=== PATIENT | male | born 1965 | race Caucasian/White ===

== ENCOUNTER 2023-04-20 23:47 | Emergency (ER) | payer MEDICAID, SELFPAY ==
[2023-04-20 23:49] VITALS: BP 120/90; PULSE 88; RESP 18; TEMP 36.6; O2SAT 92; BMI 26.6
--- NOTE | 2023-04-21 00:03 | ED.FALL1 ---
HPI - Fall General Chief Complaint: Fall Stated Complaint: FALL/RT SIDE PAIN Time Seen by Provider: 04/20/23 23:57 Source: patient Mode of arrival: walk-in Limitations: no limitations History of Present Illness HPI Narrative: This 57-year-old male is brought to the emergency department by his niece. The patient states that he was walking outside last week and wearing sneakers at did not have any tread and he slipped and fell backwards onto his right low back/hip area. He denies striking his head. He has no neck or back pain. He has a large bruise at the iliac crest on the right that wraps around anteriorly and posteriorly. He denies any blood in his urine. He has no chest pain or shortness of breath. He does admit to moderate alcohol and tobacco use. He was noted to have a low pulse ox upon arrival at 92 percent on room air but states he does not feel short of breath. He has been using Tylenol Motrin and essential oils without clinical improvement. His niece saw the bruised area today and brought him to the hospital. Related Data Home Medications Medication Instructions Recorded Confirmed No Known Home Medications 04/20/23 04/20/23 Allergies Allergy/AdvReac Type Severity Reaction Status Date / Time No Known Drug Allergies Allergy Verified 04/20/23 23:57 Review of Systems ROS Status of ROS 10 or more systems reviewed and unremarkable except as noted in history and below [facility] Social History Smoking status: Current every day smoker Exam Narrative Exam Narrative: Nurses note and vital signs reviewed and patient is mildly hypoxic with pulse ox of 92 percent on room air, pulse ox increased to 96 with movement and deep breathing General: The patient appears well and in no apparent distress but is uncomfortable with movement and when removing shirt due to right flank pain Skin: approx 10x 6 cm area of ecchymosis at right iliac crest at waist line of pants with a small scab in the center, it is firm and tender, Head: Normocephalic, atraumatic Neck: no midline bony vertebral tenderness or step-off Eye: Normal conjunctiva, no drainage, EOMI. PERRL Ears, Nose, Mouth, and Throat: oral mucosa is moist. Cardiovascular: Regular Rate and Rhythm S1S2, no murmurs, rubs or gallops Respiratory: Patient is in no distress, no accessory muscle use, lungs are clear but diminished without wheezing, rhonchi or rales, pulse ox noted to be moderately low at 92% on RA Back: no midline bony vertebral tenderness or step-off, tenderness to right lower posterior chest wall without ecchymosis, abrasion or crepitus. 10 x 6 cm area of ecchymosis at right iliac crest( waistline of pants) it is firm and tender with small scab overlying a superficial laceration GI: Normal bowel sounds, no tenderness to palpation, no masses appreciated. No rebound, guarding, or rigidity noted. Musculoskeletal: The patient has no evidence of calf tenderness, no pitting edema, symmetrical pulses noted bilaterally Neurological: A&O x4, normal speech Psychiatric: Cooperative Constitutional Vital Signs, click to edit/add: Last Vital Signs Temp 97.8 F 04/20/23 23:49 Pulse 88 04/20/23 23:49 Resp 18 04/20/23 23:49 BP 120/90 04/20/23 23:49 Pulse Ox 92 L 04/21/23 00:18 O2 Del Method Room Air 04/21/23 00:18 Course Vital Signs Vital signs: Vital Signs Temperature 97.8 F 04/20/23 23:49 Pulse Rate 88 04/20/23 23:49 Respiratory Rate 18 04/20/23 23:49 Blood Pressure 120/90 04/20/23 23:49 Pulse Oximetry 92 L 04/20/23 23:49 Oxygen Delivery Method Room Air 04/20/23 23:49 Temperature 97.8 F 04/20/23 23:49 Pulse Rate 88 04/20/23 23:49 Respiratory Rate 18 04/20/23 23:49 Blood Pressure 120/90 04/20/23 23:49 Pulse Oximetry 92 L 04/21/23 00:18 Oxygen Delivery Method Room Air 04/21/23 00:18 MDM - Fall MDM Narrative Medical decision making narrative: This 57-year-old male presents for evaluation of right low back pain after falling last week outdoors. The patient states that he was wearing shoes that did not have any tread and he fell. He states that he struck the right low back when he fell. He denies striking his head. He had no neck pain. On exam he had a large bruise at the right iliac crest area. He also had some tenderness in the right lower rib cage area without any crepitus or notable injury. He was noted to be mildly hypoxic on arrival with a pulse ox of 92 percent. The patient is known to be a heavy smoker. He denies any difficulty breathing. His lungs were diminished with rhonchi or rales. He was medicated for his pain with a Devers and a Zofran. I reevaluation he stated that he was feeling some relief of his pain after administration of these medications. Due to the large area of ecchymosis a CT scan of the abdomen and pelvis was ordered. The CT scan of abdomen and pelvis showed subacute displaced comminuted fractures of the right 11th and 12th ribs and displaced subacute fracture of the right 10th rib. It also showed confluent opacities in the right middle lobe and right lower lobe that may represent atelectasis or developing pneumonia. There was no evidence of solid organ or bowel injury. There are also numerous prominent mediastinal hilar. Neck and bilateral inguinal lymph nodes noted on the CT scan of the abdomen and pelvis. I discussed the findings of the CAT scan with the patient and his niece. I ordered a CT scan of the chest with IV contrast due to the findings on the CT scan of the abdomen and pelvis. A CBC and comp metabolic profile was ordered before the patient was given IV contrast. His labs are normal. CT scan of the chest which is included in the body of this report shows redemonstration of subacute displaced comminuted fractures of the right 11th and 12th rib. They did not note the displaced subacute fracture of the right 10th rib on the CT scan of the chest. Redemonstration of confluent airspace disease was seen in bilateral lungs with sparing of the upper lobes consistent with atelectasis or developing pneumonia. Trace right chemotherapy was noted. The lung and airways on the CT scan of the chest showed a background of moderate paraseptal and central lobular emphysema. The results of this CAT scan was also discussed with the patient and his niece. He was given copies of the CT scans. He will be referred to outpatient pulmonology. He has not had any fever or cough but may be developing a pneumonia due to the rib fractures on the right. He was given prescriptions for prednisone, doxycycline and Devers to use as needed for the rib pain and low back pain due to the recent fall. My suspicion is that the rib fractures were a prior injury as there was no notable ecchymosis, abrasion or other abnormality in the right lower rib cage area where the fractures were seen. The patient does agree to follow-up with pulmonology. His niece assured me that she would make sure that he would be taken to his appointment as she does not drive. He was given 2 Devers to use at home until he can have his prescription filled. Medical Records Medical records narrative: The [address] [address] [address] Scan Report Signed Patient: Salvatore Fletcher MR#: [id number] : 1965 Acct:[id number] Age/Sex: 57 / M ADM Date: 04/20/23 Loc: ER Attending Dr: Ordering Physician: Meme Figueroa Date of Service: 04/21/23 Procedure(s): CT abdomen pelvis wo con Accession Number(s): [id number] cc: Physician,Non-Staff M.D.~ The [address] [address] Patient Name: SALVATORE FLETCHER MRN: [id number] date: 1965 Sex: M Assigned Patient Location: ER Current Patient Location: ER Accession/Order Number: [id number] Exam Date: 04/21/2023 00:24 Report Date: 04/21/2023 00:53 At the request of: MEME FIGUEROA Procedure: CT abdomen pelvis wo con EXAM: CT abdomen pelvis wo con HISTORY: Right lower flank pain, swelling s/p fall COMPARISON: None. TECHNIQUE: CT of the abdomen and pelvis without intravenous contrast. Dose reduction techniques were achieved by using automated exposure control and/or adjustment of mA and/or kV according to patient size and/or use of iterative reconstruction technique. FINDINGS: Limited evaluation of the viscera/organs and vasculature without intravenous contrast. TUBES AND IMPLANTS: None. LOWER CHEST: Multiple prominent mediastinal and hilar lymph nodes are present. Confluent opacities are seen in the right middle lobe and right lower lobe. Moderate cardiomegaly. ABDOMEN and PELVIS ABDOMINAL WALL AND SOFT TISSUES: Unremarkable. BONES: No suspicious lesions. Subacute displaced comminuted fractures of the right 11th and 12th ribs. Displaced subacute fracture of the right 10th rib. Multilevel degenerative changes of the spine. ARTERIES: Incompletely evaluated. No aortoiliac aneurysm VEINS: Incompletely evaluated. LYMPH NODES: Multiple prominent bilateral inguinal lymph nodes are seen. PERITONEUM/ RETROPERITONEUM: Unremarkable. BOWEL: No obstruction APPENDIX: Not identified. No inflammatory changes in its expected location. LIVER: No focal lesions. GALLBLADDER: Unremarkable. BILE DUCTS: Not dilated SPLEEN: Calcified granulomata PANCREAS: Unremarkable. ADRENALS: Unremarkable. KIDNEYS/ URETERS: Unremarkable. REPRODUCTIVE ORGANS: Unremarkable URINARY BLADDER: Unremarkable. CT/CT abdomen pelvis wo con IMPRESSION: 1. Subacute displaced comminuted fractures of the right 11th and 12th ribs. Displaced subacute fracture of the right 10th rib. 2. Confluent opacities are seen in the right middle lobe and right lower lobe this may represent atelectasis or developing pneumonia. 3. No evidence of solid organ or bowel injury. 4. Nonspecific numerous prominent mediastinal, hilar, periaortic and bilateral [place] [address] CT Scan Report Signed Patient: Salvatore Fletcher MR#: [id number] : 1965 Acct:[id number] Age/Sex: 57 / M ADM Date: 04/20/23 Loc: ER Attending Dr: Ordering Physician: Meme Figueroa Date of Service: 04/21/23 Procedure(s): CT chest w con Accession Number(s): [id number] cc: Physician,Non-Staff M.D.~ The [place] [address] Patient Name: SALVATORE FLETCHER MRN: [id number] date: 1965 Sex: M Assigned Patient Location: ER Current Patient Location: ER Accession/Order Number: [id number] Exam Date: 04/21/2023 02:00 Report Date: 04/21/2023 03:02 At the request of: MEME FIGUEROA Procedure: CT chest w con EXAM: CT chest w con HISTORY: Abnormal findings on CT A/P COMPARISON: CT abdomen and pelvis 04/21/2023 TECHNIQUE: CT of the chest with intravenous contrast. Dose reduction techniques were achieved by using automated exposure control and/or adjustment of mA and/or kV according to patient size and/or use of iterative reconstruction technique. FINDINGS: TUBES AND IMPLANTS: None. CHEST: CHEST WALL AND LOWER NECK: Unremarkable. MEDIASTINUM AND NOAH: Numerous mildly prominent mediastinal and hilar lymph nodes are present. BONES: Redemonstration of subacute displaced comminuted fractures of the right 11th and 12th rib. No displaced subacute fracture of the right 10th rib is not imaged on the study. No other fractures are identified. AORTA: No aneurysm or dissection. PULMONARY ARTERIES: No large saddle embolus. CORONARY ARTERIES: No coronary artery calcifications. HEART: Moderate cardiomegaly. LUNG AND AIRWAYS: Background of moderate paraseptal and centrilobular emphysema. Confluent airspace disease seen in in the bilateral lungs with some sparing of the upper lobes. PLEURA: Trace right hemothorax. UPPER ABDOMEN: No acute findings. CT/CT chest w con IMPRESSION: Redemonstration of subacute displaced comminuted fractures of the right 11th and 12th rib. No displaced subacute fracture of the right 10th rib is not imaged on the study. Redemonstration of confluent airspace disease seen in the bilateral lungs with some sparing of the upper lobes. These findings may represent atelectasis or developing pneumonia. Trace right hemothorax. Electronically authenticated by: THANH ATKINS Date: 04/21/2023 03:02 Lab Data Labs: Lab Results 04/21/23 Range/Units 01:20 WBC 9.7 (4.0-11.0) 10^3/uL RBC 4.92 (4.70-6.10) 10^6/uL Hgb 16.2 (14.0-18.0) g/dL Hct 48.4 (42.0-54.0) % MCV 98.4 H (80.0-94.0) fL MCH 32.9 (25.9-34.0) pg MCHC 33.5 (29.9-35.2) g/dL RDW 12.9 (11.0-15.0) % Plt Count 162 (150-450) 10^3/uL MPV 11.5 (9.5-13.5) fL Neut % (Auto) 69.3 (43.0-75.0) % Lymph % (Auto) 12.3 L (20.5-60.0) % Dickinson % (Auto) 13.8 H (1.7-12.0) % Eos % (Auto) 2.8 (0.9-7.0) % Baso % (Auto) 0.8 (0.2-2.0) % Neut # (Auto) 6.7 H (1.4-6.5) 10^3/uL Lymph # (Auto) 1.2 (1.2-3.8) 10^3/uL Dickinson # (Auto) 1.3 H (0.3-0.8) 10^3/uL Eos # (Auto) 0.3 (0.0-0.7) 10^3/uL Baso # (Auto) 0.1 (0.0-0.1) 10^3/uL Abs Immat Gran (auto) 0.10 H (0.00-0.03) 10^3/uL Imm/Tot Granulo (auto) 1.0 H (0.0-0.5) % Sodium 137 (136-145) mmol/L Potassium 4.0 (3.5-5.1) mmol/L Chloride 103 (98-107) mmol/L Carbon Dioxide 27.9 (21.0-32.0) mmol/L Anion Gap 10.1 BUN 11.0 (7.0-18.0) mg/dL Creatinine 0.96 (0.70-1.30) mg/dL Est GFR ( Amer) >60 (>=60) Est GFR (Non-Af Amer) >60 (>=60) BUN/Creatinine Ratio 11.5 Glucose 107 H (74-106) mg/dL Calcium 8.5 (8.5-10.1) mg/dL Total Bilirubin 0.5 (0.2-1.0) mg/dL AST 13 L (15-37) U/L ALT 17 (16-63) U/L Alkaline Phosphatase 79 (46-116) U/L Total Protein 7.2 (6.4-8.2) g/dL Albumin 3.0 L (3.4-5.0) g/dL Globulin 4.2 g/dL Albumin/Globulin Ratio 0.7 Discharge Plan Discharge Chief Complaint: Fall Clinical Impression: Multiple rib fractures, Lumbar contusion, Fall from standing, COPD (chronic obstructive pulmonary disease) with emphysema Patient Disposition: Home, Self-Care Time of Disposition Decision: 03:13 Condition: Fair Prescriptions / Home Meds: No Action No Known Home Medications Instructions: Rib Fracture (ED), Emphysema (ED), Contusion in Adults (ED), Fall Prevention (ED), Chronic Lung Disease and Infection Prevention (ED) Stand Alone Forms: Portal Instructions Referrals: Edilson Connors DO [Physician] - 1 week Physician,Non-Staff, MD [Primary Care Provider] - 1 week Discharge Date/Time: 04/21/23 03:46
--- NOTE | 2023-04-21 00:16 | CT_ITS ---
[address] [address] Patient Name: CASIE FLETCHER MRN: [facility]:[id number] date: 1965 Sex: M Assigned Patient Location: ER Current Patient Location: ER Accession/Order Number: [id number] Exam Date: 04/21/2023 00:24 Report Date: 04/21/2023 00:53 At the request of: NAV MARKER Procedure: CT abdomen pelvis wo con EXAM: CT abdomen pelvis wo con HISTORY: Right lower flank pain, swelling s/p fall COMPARISON: None. TECHNIQUE: CT of the abdomen and pelvis without intravenous contrast. Dose reduction techniques were achieved by using automated exposure control and/or adjustment of mA and/or kV according to patient size and/or use of iterative reconstruction technique. FINDINGS: Limited evaluation of the viscera/organs and vasculature without intravenous contrast. TUBES AND IMPLANTS: None. LOWER CHEST: Multiple prominent mediastinal and hilar lymph nodes are present. Confluent opacities are seen in the right middle lobe and right lower lobe. Moderate cardiomegaly. ABDOMEN and PELVIS ABDOMINAL WALL AND SOFT TISSUES: Unremarkable. BONES: No suspicious lesions. Subacute displaced comminuted fractures of the right 11th and 12th ribs. Displaced subacute fracture of the right 10th rib. Multilevel degenerative changes of the spine. ARTERIES: Incompletely evaluated. No aortoiliac aneurysm VEINS: Incompletely evaluated. LYMPH NODES: Multiple prominent bilateral inguinal lymph nodes are seen. PERITONEUM/ RETROPERITONEUM: Unremarkable. BOWEL: No obstruction APPENDIX: Not identified. No inflammatory changes in its expected location. LIVER: No focal lesions. GALLBLADDER: Unremarkable. BILE DUCTS: Not dilated SPLEEN: Calcified granulomata PANCREAS: Unremarkable. ADRENALS: Unremarkable. KIDNEYS/ URETERS: Unremarkable. REPRODUCTIVE ORGANS: Unremarkable URINARY BLADDER: Unremarkable. CT/CT abdomen pelvis wo con IMPRESSION: 1. Subacute displaced comminuted fractures of the right 11th and 12th ribs. Displaced subacute fracture of the right 10th rib. 2. Confluent opacities are seen in the right middle lobe and right lower lobe this may represent atelectasis or developing pneumonia. 3. No evidence of solid organ or bowel injury. 4. Nonspecific numerous prominent mediastinal, hilar, periaortic and bilateral inguinal lymph nodes. Electronically authenticated by: THANH ATKINS Date: 04/21/2023 00:53
[2023-04-21 00:18] VITALS: O2SAT 92
[2023-04-21] MEDS: HYDROCODONE/ACET 5-325 MG TABLET 1 TAB PO (00:47)
[2023-04-21] MEDS: ONDANSETRON 4 MG RAPDIS TABLET SL (00:47)
--- NOTE | 2023-04-21 01:13 | CT_ITS ---
The [address] [address] Patient Name: CASIE FLETCHER MRN: [facility]:[id number] date: 1965 Sex: M Assigned Patient Location: ER Current Patient Location: ER Accession/Order Number: [id number] Exam Date: 04/21/2023 02:00 Report Date: 04/21/2023 03:02 At the request of: NAV MARKER Procedure: CT chest w con EXAM: CT chest w con HISTORY: Abnormal findings on CT A/P COMPARISON: CT abdomen and pelvis 04/21/2023 TECHNIQUE: CT of the chest with intravenous contrast. Dose reduction techniques were achieved by using automated exposure control and/or adjustment of mA and/or kV according to patient size and/or use of iterative reconstruction technique. FINDINGS: TUBES AND IMPLANTS: None. CHEST: CHEST WALL AND LOWER NECK: Unremarkable. MEDIASTINUM AND NOAH: Numerous mildly prominent mediastinal and hilar lymph nodes are present. BONES: Redemonstration of subacute displaced comminuted fractures of the right 11th and 12th rib. No displaced subacute fracture of the right 10th rib is not imaged on the study. No other fractures are identified. AORTA: No aneurysm or dissection. PULMONARY ARTERIES: No large saddle embolus. CORONARY ARTERIES: No coronary artery calcifications. HEART: Moderate cardiomegaly. LUNG AND AIRWAYS: Background of moderate paraseptal and centrilobular emphysema. Confluent airspace disease seen in in the bilateral lungs with some sparing of the upper lobes. PLEURA: Trace right hemothorax. UPPER ABDOMEN: No acute findings. CT/CT chest w con IMPRESSION: Redemonstration of subacute displaced comminuted fractures of the right 11th and 12th rib. No displaced subacute fracture of the right 10th rib is not imaged on the study. Redemonstration of confluent airspace disease seen in the bilateral lungs with some sparing of the upper lobes. These findings may represent atelectasis or developing pneumonia. Trace right hemothorax. Electronically authenticated by: THANH ATKINS Date: 04/21/2023 03:02
[2023-04-21 01:35] LABS: Basophils Absolute Auto 0.1 10^3/uL (0.0-0.1); Basophils Percent Auto 0.8 % (0.2-2.0); Eosinophils Absolute Auto 0.3 10^3/uL (0.0-0.7); Eosinophils Percent Auto 2.8 % (0.9-7.0); Hematocrit 48.4 % (42.0-54.0); Hemoglobin 16.2 g/dL (14.0-18.0); Lymphocytes Absolute Auto 1.2 10^3/uL (1.2-3.8); Lymphocytes Percent Auto 12.3 % (20.5-60.0); Mean Corpuscular HGB Conc 33.5 g/dL (29.9-35.2); Mean Corpuscular Hemoglobin 32.9 pg (25.9-34.0); Mean Corpuscular Volume 98.4 fL (80.0-94.0); Mean Platelet Volume 11.5 fL (9.5-13.5); Monocytes Absolute Auto 1.3 10^3/uL (0.3-0.8); Monocytes Percent Auto 13.8 % (1.7-12.0); Neutrophils Absolute Auto 6.7 10^3/uL (1.4-6.5); Neutrophils Percent Auto 69.3 % (43.0-75.0); Platelet Count 162 10^3/uL (150-450); Red Blood Count 4.92 10^6/uL (4.70-6.10); Red Cell Distribution Width 12.9 % (11.0-15.0); White Blood Count 9.7 10^3/uL (4.0-11.0)
[2023-04-21] MEDS: 0.9 % SODIUM CHLORIDE 1,000 ML 1000 ML IV (01:40)
[2023-04-21 01:49] LABS: Alanine Aminotransferase 17 U/L (16-63); Albumin Globulin Ratio 0.7; Alkaline Phosphatase 79 U/L (46-116); Anion Gap 10.1; Aspartate Amino Transferase 13 U/L (15-37); BUN Creatinine Ratio 11.5; Bilirubin Total 0.5 mg/dL (0.2-1.0); Calcium 8.5 mg/dL (8.5-10.1); Carbon Dioxide 27.9 mmol/L (21.0-32.0); Chloride 103 mmol/L (98-107); Estimated GFR (African America >60 (>=60); Estimated GFR (Non-African Ame >60 (>=60); Globulin 4.2 g/dL; Glucose 107 mg/dL (74-106); Sodium 137 mmol/L (136-145); Total Protein 7.2 g/dL (6.4-8.2)
[2023-04-21] MEDS: HYDROCODONE/ACET 5-325 MG TABLET 2 TAB PO (03:39)
== END 2023-04-21 03:46 | disposition home or self-care (01) ==
PROVIDERS: Emergency Provider Emergency Medicine
DX: S22.41XA Multiple fractures of ribs, right side, initial encounter for closed fracture (principal); S30.0XXA Contusion of lower back and pelvis, initial encounter; J43.9 Emphysema, unspecified; W19.XXXA Unspecified fall, initial encounter; F17.210 Nicotine dependence, cigarettes, uncomplicated
CPT/HCPCS: 36415; 71260; 74176; 80053; 85025; 99284; Q9967